=== PATIENT | female | born 1945 | race Caucasian/White ===

== ENCOUNTER 2021-10-16 15:26 | Emergency (ER) | payer MEDICARE, SELFPAY ==
[2021-10-16 16:19] VITALS: BP 139/78; PULSE 77; RESP 16; TEMP 37.2; O2SAT 97; BMI 26.6
[2021-10-16 19:22] LABS: COVID-19 Test Negative (Negative); IDNOW Serial# 9DD0AD1C
[2021-10-16 19:43] VITALS: BP 155/70; PULSE 71; RESP 20; TEMP 36.8; O2SAT 99
--- NOTE | 2021-10-16 19:47 | ED.URI ---
HPI - URI/Sore Throat General Chief Complaint: Fever Stated Complaint: body aches fatigue nausea Time Seen by Provider: 10/16/21 19:46 Source: patient Mode of arrival: ambulatory Limitations: no limitations History of Present Illness HPI Narrative: 76-year-old female presents with flu-like symptoms. Requested COVID-19 testing. MD elicited complaint: fever Onset (ago): day(s) Consistency: constant Severity: moderate Description of mucous: clear Able to tolerate fluids by mouth: Yes Relieving factors: nothing Context: sick contacts Associated symptoms: fever, chills and myalgias Treatments prior to arrival: none Related Data Allergies Allergy/AdvReac Type Severity Reaction Status Date / Time Penicillins Allergy Hives Verified 10/16/21 16:22 Review of Systems Review of Systems: Constitutional: Positive Fever, positive Chills ENT/Mouth: No Ear Pain, No Hoarseness, No sore throat Eyes: No Eye Pain, No Swelling, No Redness, No Foreign Body Cardiovascular: No Chest Pain, No SOB Respiratory: No Cough, No Dyspnea Gastrointestinal: No Nausea, No Vomiting, No Diarrhea, No abdominal Pain Genitourinary: No Dysuria, No Hematuria Musculoskeletal: positive joint pain, positive Myalgias, No Joint Swelling Skin: No Skin lacerations, No rash Neuro: No Weakness, No Numbness, No Paresthesias, No Loss of Consciousness, No Dizziness, No Headache Psych: No Anxiety/Panic, No Depression Heme/Lymph: no easy bruising, no Lymphadenopathy Endocrine: No Polyuria, No Polydipsia Yes all other systems are reviewed and are negative FOR[facility]LY [facility] Past Medical History Attestation statement: The following information was validated with the patient. Source: old records reviewed Social History Social History Advance Directives: No Advance Directives Information Provided: Yes Physical Exam Vital Signs: Vital Signs: Last Vital Signs Temp 98.3 F 10/16/21 19:43 Pulse 71 10/16/21 19:43 Resp 20 10/16/21 19:43 BP 155/70 H 10/16/21 19:43 Pulse Ox 99 10/16/21 19:43 BMI result Body Mass Index 26.6 Appearance: Alert. Oriented X3. No acute distress. Eyes: Pupils equal, round and reactive to light. ENT: Pharynx normal. Neck: Normal inspection. Neck supple. CVS: Normal heart rate and rhythm. Pulses normal. Respiratory: No respiratory distress. Breath sounds normal. Abdomen: Soft and nontender. Skin: Skin warm and dry. Normal skin color. Normal skin turgor. Extremities: No lower extremity edema. gait well-balanced well coordinated. Neuro: No motor deficit. No sensory deficit. Cranial nerves 2 through 12 intact Course Course Course Narrative: 68-year-old female presents with flu-like symptoms. Tested for COVID-19. Test results are negative. Patient verbalized understanding of and agrees to plan of care discharge home. MDM - URI/Sore Throat Differential Diagnosis Differential diagnosis: Likely upper respiratory infection, viral infection, bronchitis and influenza Medical Records Attestation: I reviewed the patient's medical records. Lab Data Attestation: I reviewed the patient's lab results. Labs: Lab Results 10/16/21 Range/Units 18:56 COVID-19 (LI) Negative (Negative) COVID-19 Clin Com See Note Discharge Plan Discharge Clinical Impression: Viral infection Patient Disposition: Home, Self-Care Instructions: Viral Syndrome (ED) Additional Instructions: You were evaluated for symptoms consistent with COVID-19. Your testing was negative. Please use supportive measures Tylenol 650 mg every 6 hours as needed for fever and pain management. You may alternate with Motrin 600 mg every 6 hours as needed. Please write down what time you take these medications to prevent accidental overdose. Drink plenty of fluids. Thank you for choosing this emergency department for evaluation. Please follow-up with primary care physician as needed. Return to the emergency department for any new, concerning, or worsening symptoms. Interventions: ED Discharge Assessment Last Done: 10/16/21 20:00 Discharge Date/Time: 10/16/21 20:01
== END 2021-10-16 20:01 | disposition home or self-care (01) ==
LOC: HO.ED 19:52
PROVIDERS: Emergency Provider Internal Medicine; PCP Internal Medicine
DX: B34.9 Viral infection, unspecified (principal); Z20.822 Contact with and (suspected) exposure to COVID-19
CPT/HCPCS: 36415; 87635; 99283; 99284